=== PATIENT | female | born 1975 | race Caucasian/White ===

== ENCOUNTER → 2022-08-20 10:55 | Outpatient (CLI) | payer OTHER, SELFPAY ==
[2022-08-20 19:56] LABS: Add Manual Diff / Slide Review NO; Basophils Absolute Auto 100 /uL (0-100); Eosinophils Absolute Auto 100 /uL (0-450); Eosinophils Percent Auto 1.6 % (2-4); Hematocrit 38.6 % (36-46); Hemoglobin 12.8 g/dL (12.0-16.0); Lymphocytes Absolute Auto 1600 /uL (1100-4500); Lymphocytes Percent Auto 30.3 % (25-40); Mean Corpuscular HGB Conc 33.1 % (30-36); Mean Corpuscular Hemoglobin 30.2 PG (26-34); Mean Corpuscular Volume 91.1 fL (80-100); Monocytes Absolute Auto 400 /uL (0-900); Monocytes Percent Auto 7.1 % (3-14); Neutrophils Absolute Auto 3200 /uL (1500-7000); Platelet Count 214 X10^3/uL (150-400); Red Blood Cell Count 4.23 X10^6/uL (4.0-5.2); Red Cell Distribution Width 13.2 % (11.6-14.8); White Blood Cell Count 5.4 X10^3/uL (4.5-11.0)
[2022-08-20 20:13] LABS: C-Reactive Protein Quant 0.5 mg/dL (<1.0)
[2022-08-20 20:20] LABS: Rheumatoid Factor < 8.6 IU/mL (<12.0)
[2022-08-20 20:29] LABS: Erythrocyte Sedimentation Rate 7 MM/HR (0-20)
[2022-08-23 18:50] LABS: ANA Screen, IFA Negative (.)
== END ==
PROVIDERS: PCP Physician Assistant Medical; Visit Provider Physician Assistant Medical
DX: M79.7 Fibromyalgia (principal); R20.0 Anesthesia of skin; R20.2 Paresthesia of skin; R40.0 Somnolence; R53.82 Chronic fatigue, unspecified; R53.83 Other fatigue
CPT/HCPCS: 85025; 85651; 86038; 86140; 86430

== ENCOUNTER → 2022-10-23 13:21 | Outpatient (CLI) | payer MEDICARE, SELFPAY ==
--- NOTE | 2022-10-23 | DI.MG.S_ITS ---
UNILATERAL RIGHT DIGITAL DIAGNOSTIC MAMMOGRAM 3D/2D WITH ADDITIONAL VIEWS: 10/23/2022 CLINICAL: Additional evaluation requested from prior study. Comparison is made to exam dated: 08/12/2022 mammogram - outside location. The right breast is heterogeneously dense, which may obscure small masses (category c / 51-75% glandular tissue). There is a 0.3 cm oval low density focal asymmetry with a circumscribed margin in the right breast at 9 o'clock posterior depth. This is seen in additional views. No other significant masses or calcifications are seen in the breast. IMPRESSION: INCOMPLETE: NEEDS ADDITIONAL IMAGING EVALUATION The 0.3 cm oval low density focal asymmetry in the right breast is indeterminate. An ultrasound is recommended. Based on the Tyrer Cuzick model (a risk assessment model) the patient's lifetime risk is 10.1% and her 10 year risk is 2.0%. According to the ACR, ACS, and NCCN guidelines, an annual breast MRI exam along with mammogram is recommended if the patient's lifetime risk is 20% or greater. This exam was interpreted at Station ID: [id number]. NOTE: For mammograms, a report in lay terms will be sent to the patient. Approximately 15% of breast malignancies will not be visualized mammographically. In the management of a palpable breast mass, a negative mammogram must not discourage biopsy of a clinically suspicious lesion. Electronically Signed By: Kiel toney/solis:10/23/2022 16:00:09 ACR BI-RADS Category 0: Incomplete 3340F
--- NOTE | 2022-10-23 13:23 | DI.US.S_ITS ---
LIMITED ULTRASOUND OF RIGHT BREAST AND AXILLA: 10/23/2022 CLINICAL: Patient returns today to evaluate a focal asymmetry in the right breast. Comparison is made to exams dated: 10/23/2022 mammogram - and 08/12/2022 mammogram - outside location. Color flow ultrasound of the right breast axilla was performed. Yepez scale images of the real-time examination were reviewed. There is a 0.3 cm x 0.2 cm x 0.2 cm oval mass with a circumscribed margin in the right breast at 9 o'clock posterior depth 8 cm from the nipple. This oval mass is hypoechoic. This correlates with mammography findings. Color flow imaging demonstrates that there is no vascularity present. No significant abnormalities were seen sonographically in the right axilla. IMPRESSION: PROBABLY BENIGN The 0.3 cm x 0.2 cm x 0.2 cm oval mass in the right breast most likely is a complicated cyst and is probably benign. A follow-up right mammogram and an ultrasound in 6 months is recommended to demonstrate stability. This exam was interpreted at Station ID: [id number]. Electronically Signed By: Kiel toney/solis:10/23/2022 16:03:54 letter sent: Followup Recommended Ultrasound BI-RADS: 3 Probably benign
--- NOTE | 2022-10-23 13:23 | DI.CT.S_ITS ---
PROCEDURE: CT HEAD/BRAIN WO CON INDICATIONS: chronic sinusitis, headaches, fatigue TECHNIQUE: Noncontrast 4.5 mm thick angled axial sections acquired from the foramen magnum to the vertex, with coronal and sagittal reformats. For radiation dose reduction, the following was used: automated exposure control, adjustment of mA and/or kV according to patient size. COMPARISON: None. FINDINGS: Image quality: Excellent. CSF spaces: Basal cisterns are patent. No extra-axial fluid collections. Ventricles are normal in size and shape. Brain: No midline shift. No intracranial masses or hemorrhage. Yepez-white matter interface is normal. Skull and face: Calvarium and visualized facial bones are intact, without suspicious lesions. Sinuses: Visualized sinuses and mastoids are clear. IMPRESSION: Unremarkable noncontrast head CT, without a cause of headaches identified. No active paranasal sinus disease is seen. Dictated by: Ronald Mejia M.D. on 10/23/2022 at 12:40 Approved by: Ronald Mejia M.D. on 10/23/2022 at 12:40
== END ==
LOC: MAMMO 13:22
PROVIDERS: PCP Physician Assistant Medical; Referring Provider Physician Assistant Medical; Visit Provider Physician Assistant Medical
DX: J32.9 Chronic sinusitis, unspecified (principal); R92.8 Other abnormal and inconclusive findings on diagnostic imaging of breast; R51.9 Headache, unspecified; R53.82 Chronic fatigue, unspecified; N63.15 Unspecified lump in the right breast, overlapping quadrants
CPT/HCPCS: 70450; 76642; 77065; G0279

== ENCOUNTER → 2023-01-28 12:59 | Outpatient (CLI) | payer MEDICARE, SELFPAY ==
[2023-01-28 19:14] LABS: Add Manual Diff / Slide Review NO; Basophils Absolute Auto 0 /uL (0-100); Basophils Percent Auto 0.8 % (0-2); Eosinophils Absolute Auto 100 /uL (0-450); Eosinophils Percent Auto 1.9 % (2-4); Hematocrit 37.2 % (36-46); Hemoglobin 12.6 g/dL (12.0-16.0); Lymphocytes Absolute Auto 1900 /uL (1100-4500); Mean Corpuscular Hemoglobin 31.1 PG (26-34); Mean Corpuscular Volume 91.6 fL (80-100); Monocytes Absolute Auto 400 /uL (0-900); Monocytes Percent Auto 7.1 % (3-14); Neutrophils Absolute Auto 3300 /uL (1500-7000); Neutrophils Percent Auto 57.2 % (50-75); Platelet Count 229 X10^3/uL (150-400); Red Blood Cell Count 4.06 X10^6/uL (4.0-5.2); Red Cell Distribution Width 13.1 % (11.6-14.8); White Blood Cell Count 5.9 X10^3/uL (4.5-11.0)
[2023-01-28 19:24] LABS: Alanine Aminotransferase 19 IU/L (<35); Albumin 4.4 g/dL (3.5-5.0); Albumin Globulin Ratio 1.7 (1.0-2.8); Alkaline Phosphatase 77 U/L (38-126); Aspartate Aminotransferase 27 IU/L (14-36); BUN Creatinine Ratio 13.2 (6-22); Bilirubin Total 0.3 mg/dL (0.2-1.3); Blood Urea Nitrogen 12 mg/dL (7-17); Calcium 9.5 mg/dL (8.4-10.2); Carbon Dioxide 29 mmol/L (22-32); Chloride 104 mmol/L (98-107); Estimated Glomerular Filt Rate > 60 mL/min (>60); Globulin 2.6 g/dL (1.7-4.1); Glucose 81 mg/dL (70-100); HEMOLYSIS < 15 (0-50); Lipase 96 U/L (23-300); Potassium 3.9 mmol/L (3.4-5.1); Sodium 138 mmol/L (137-145)
== END ==
PROVIDERS: PCP Physician Assistant Medical; Visit Provider Physician Assistant
DX: R10.9 Unspecified abdominal pain (principal); M54.50 Low back pain, unspecified
CPT/HCPCS: 80053; 83690; 85025

== ENCOUNTER → 2023-04-09 09:55 | Outpatient (CLI) | payer MEDICARE, SELFPAY ==
--- NOTE | 2023-04-09 09:56 | DI.US.S_ITS ---
LIMITED ULTRASOUND OF RIGHT BREAST AND AXILLA: 04/09/2023 CLINICAL: Patient returns today to evaluate a focal asymmetry in the right breast. Comparison is made to exams dated: 10/23/2022 ultrasound, 04/09/2023 mammogram, 10/23/2022 mammogram - [facility], and 08/12/2022 mammogram - outside location. Color flow and real-time ultrasound of the right breast 9 o'clock, and axilla regions were performed. Yepez scale images of the real-time examination were reviewed. There is a stable 0.4 cm oval complicated cyst in the right breast at 9 o'clock posterior depth 8 cm from the nipple. This oval complicated cyst is hypoechoic. This correlates with mammography findings. Color flow imaging demonstrates that there is no vascularity present. No significant abnormalities were seen sonographically in the right axilla. IMPRESSION: PROBABLY BENIGN The stable 0.4 cm oval complicated cyst in the right breast is probably benign. A follow-up mammogram and an ultrasound in 6 months is recommended to demonstrate stability. Patient will be due for left breast mammogram at that time. Exam findings were conveyed to the patient. This exam was interpreted at Station ID: [id number]. Electronically Signed By: Vitor Jurado M.D. slc/:04/09/2023 11:53:41 letter sent: Followup Recommended Ultrasound BI-RADS: 3 Probably benign
--- NOTE | 2023-04-09 10:17 | DI.MG.S_ITS ---
Patient Name: JORGE REINOSO date: 1975 Sex: F Attending Physician: Basia Indications: Date: 04/09/2023 10:31 At the request of: JUSTEN MCCARTHY Procedure: MM diagnostic mammo unilat RT UNILATERAL RIGHT DIGITAL DIAGNOSTIC MAMMOGRAM 3D/2D: 04/09/2023 CLINICAL: Short term follow up of the right breast. Comparison is made to exams dated: 10/23/2022 ultrasound, 10/23/2022 mammogram - [facility], and 08/12/2022 mammogram - outside location. There are scattered areas of fibroglandular density in the right breast (category b / 25%-50% glandular tissue). There is a stable focal asymmetry in the right breast at 9 o'clock posterior depth. No other significant masses or calcifications are seen in the breast. IMPRESSION: INCOMPLETE: NEEDS ADDITIONAL IMAGING EVALUATION The stable focal asymmetry in the right breast is indeterminate. A targeted ultrasound is recommended and will immediately follow. Based on the Tyrer Cuzick model (a risk assessment model) the patient?s lifetime risk is 6.8% and her 10 year risk is 1.4%. According to the ACR, ACS, and NCCN guidelines, an annual breast MRI exam along with mammogram is recommended if the patient?s lifetime risk is 20% or greater. This exam was interpreted at Station ID: [id number]. Continued Report - Page 2 of 2 Patient Name: JORGE REINOSO date: 1975 Sex: F Attending Physician: Basia Indications: Date: 04/09/2023 10:31 At the request of: JUSTEN MCCARTHY Procedure: MM diagnostic mammo unilat RT NOTE: For mammograms, a report in lay terms will be sent to the patient. Approximately 15% of breast malignancies will not be visualized mammographically. In the management of a palpable breast mass, a negative mammogram must not discourage biopsy of a clinically suspicious lesion. Electronically Signed By: Vitor Jurado M.D. slc/:04/09/2023 10:31:46 ACR BI-RADS Category 0: Incomplete 3340F
== END ==
PROVIDERS: PCP Physician Assistant; Referring Provider Physician Assistant; Visit Provider Physician Assistant
DX: N60.01 Solitary cyst of right breast; N64.89 Other specified disorders of breast
CPT/HCPCS: 76642; 77065; G0279

== ENCOUNTER → 2023-05-15 11:47 | Outpatient (CLI) | payer MEDICARE, SELFPAY ==
--- NOTE | 2023-05-15 11:49 | DI.RAD.S_ITS ---
Bone Density Report Name: JORGE REINOSO Age: 48 Sex: Female Ethnicity: White Date of : 1975 Indication: postmenopausal; Referring Provider: JUSTEN MCCARTHY Study: Bone densitometry was performed. Exam Date: May 15, 2023 Accession number: [id number] Bone Density: Region BMD T-score Z-score Classification AP Spine(L1-L4) 0.797 -2.3 -1.6 Osteopenia Femoral Neck (Left) 0.571 -2.5 -1.9 Osteoporosis Total Hip (Left) 0.715 -1.9 -1.5 Osteopenia Femoral Neck (Right) 0.618 -2.1 -1.4 Osteopenia Total Hip (Right) 0.763 -1.5 -1.1 Osteopenia Total Hip Mean 0.739 -1.7 -1.3 Osteopenia World Health Organization criteria for BMD impression classify patients as: Normal (T-score at or above -1.0), Osteopenia (T-score between -1.0 and -2.5), or Osteoporosis (T-score at or below -2.5). 10-year Fracture Risk: FRAX not reported because: Some T-score for Spine Total or Hip Total or Femoral Neck at or below -2.5 Impression: The patient has osteoporosis, based on the Left Femoral Neck T-score. Discussion: INCREASED RISK OF FRACTURE. BONE DENSITY IS UNDESIRABLY LOW AT ONE OR MORE SKELETAL SITES, CONSISTENT WITH POSTMENOPAUSAL OSTEOPOROSIS. This patient's lowest T-score meets the World Health Organization's (WHO) criteria for osteoporosis at one or more sites (T-score -2.5 or below). In untreated patients, the risk of osteoporotic fracture increases approximately two-fold for each 1.0 SD decrease in T-score. Low bone density is not the only risk factor for fracture; also consider factors such as patient's age, frailty or poor health, risk of falling, risk of injury, previous osteoporotic fracture, family history of osteoporosis, cigarette smoking, low body weight, etc. Not everyone with low bone mineral density has osteoporosis; osteomalacia and other metabolic bone disorders should also be considered. Patients who have osteoporosis should be evaluated for specific diseases and conditions (secondary causes) that may cause or contribute to bone loss. The [place] [employer]ocr[employer] (AACE) and National Osteoporosis Foundation (NOF) recommend pharmacologic intervention for all postmenopausal women whose T-score is in this range. The patient should follow a healthful lifestyle (good nutrition with adequate calcium and vitamin D, and appropriate weight-bearing exercise). Follow-Up: Consider a repeat BMD and Vertebral Fracture Assessment (VFA) exam in 2 years or sooner if medically necessary, to reassess this patient's status. Reported by: JOSHUA JAQUEZ M.D. on 05/15/2023 12:18:00 PM.
== END ==
PROVIDERS: PCP Physician Assistant; Referring Provider Physician Assistant; Visit Provider Physician Assistant
DX: M81.0 Age-related osteoporosis without current pathological fracture (principal); Z78.0 Asymptomatic menopausal state
CPT/HCPCS: 77080

== ENCOUNTER → 2024-03-03 09:59 | Outpatient (CLI) | payer MEDICARE, SELFPAY ==
--- NOTE | 2024-03-03 | DI.MG.S_ITS ---
BILATERAL DIGITAL DIAGNOSTIC MAMMOGRAM 3D/2D: 03/03/2024 CLINICAL: Patient returns for a 6 month follow up of the right breast, due for bilateral exam. Comparison is made to exams dated: 04/09/2023 mammogram, 10/23/2022 mammogram - [facility], and 08/12/2022 mammogram - outside location. There are scattered areas of fibroglandular density in both breasts (category b / 25%-50% glandular tissue). There is a stable focal asymmetry in the right breast at 10 o'clock posterior depth. No other significant masses, calcifications, or other findings are seen in either breast. IMPRESSION: INCOMPLETE: NEEDS ADDITIONAL IMAGING EVALUATION The stable focal asymmetry in the right breast is indeterminate. A targeted ultrasound of the right breast is recommended and will be performed immediately following this exam. Based on the Tyrer Cuzick model (a risk assessment model) the patient's lifetime risk is 6.9% and her 10 year risk is 1.5%. According to the ACR, ACS, and NCCN guidelines, an annual breast MRI exam along with mammogram is recommended if the patient's lifetime risk is 20% or greater. This exam was interpreted at Station ID: [id number]. NOTE: For mammograms, a report in lay terms will be sent to the patient. Approximately 15% of breast malignancies will not be visualized mammographically. In the management of a palpable breast mass, a negative mammogram must not discourage biopsy of a clinically suspicious lesion. Electronically Signed By: Seema Gold M.D. lk/:03/03/2024 11:02:15 ACR BI-RADS Category 0: Incomplete 3340F
--- NOTE | 2024-03-03 10:00 | DI.US.S_ITS ---
LIMITED ULTRASOUND OF RIGHT BREAST: 03/03/2024 CLINICAL: 6 month follow-up of mass. Comparison is made to exams dated: 03/03/2024 mammogram, 04/09/2023 ultrasound, 04/09/2023 mammogram, 10/23/2022 ultrasound, and 10/23/2022 mammogram - [facility]. Color flow and real-time ultrasound of the right breast 9 o'clock region were performed on the areas of interest. Yepez scale images of the real-time examination were reviewed. There is a stable 0.4 cm oval complicated cyst in the right breast at 9 o'clock posterior depth 8 cm from the nipple. This oval complicated cyst is hypoechoic. This correlates with mammography findings. Color flow imaging demonstrates that there is no vascularity present. IMPRESSION: PROBABLY BENIGN The stable 0.4 cm oval complicated cyst in the right breast is probably benign. A follow-up ultrasound in 6 months is recommended to demonstrate stability. This exam was interpreted at Station ID: [id number]. Electronically Signed By: Seema rush/:03/03/2024 11:25:27 letter sent: Followup Recommended Ultrasound BI-RADS: 3 Probably benign
== END ==
LOC: MAMMO 10:00
PROVIDERS: PCP Physician Assistant; Referring Provider Physician Assistant; Visit Provider Physician Assistant
DX: R92.8 Other abnormal and inconclusive findings on diagnostic imaging of breast; N60.01 Solitary cyst of right breast; R92.323 Mammographic fibroglandular density, bilateral breasts
CPT/HCPCS: 76642; 77066; G0279

== ENCOUNTER → 2024-03-10 10:45 | Outpatient (CLI) | payer MEDICARE, SELFPAY ==
[2024-03-10 19:08] LABS: Add Manual Diff / Slide Review NO; Basophils Absolute Auto 100 /uL (0-100); Basophils Percent Auto 1.5 % (0-2); Eosinophils Absolute Auto 100 /uL (0-450); Eosinophils Percent Auto 1.4 % (2-4); Hematocrit 37.4 % (36-46); Hemoglobin 12.7 g/dL (12.0-16.0); Lymphocytes Absolute Auto 1300 /uL (1100-4500); Lymphocytes Percent Auto 28.7 % (25-40); Mean Corpuscular HGB Conc 33.9 % (30-36); Mean Corpuscular Hemoglobin 30.8 PG (26-34); Monocytes Absolute Auto 300 /uL (0-900); Monocytes Percent Auto 5.9 % (3-14); Neutrophils Absolute Auto 2900 /uL (1500-7000); Neutrophils Percent Auto 62.5 % (50-75); Platelet Count 272 X10^3/uL (150-400); Red Blood Cell Count 4.12 X10^6/uL (4.0-5.2); Red Cell Distribution Width 13.8 % (11.6-14.8); White Blood Cell Count 4.6 X10^3/uL (4.5-11.0)
[2024-03-10 19:18] LABS: Alanine Aminotransferase 19 IU/L (<35); Albumin 4.7 g/dL (3.5-5.0); Albumin Globulin Ratio 2.1 (1.0-2.8); Alkaline Phosphatase 68 U/L (38-126); Aspartate Aminotransferase 23 IU/L (14-36); BUN Creatinine Ratio 24.2 (6-22); Bilirubin Total 0.4 mg/dL (0.2-1.3); Blood Urea Nitrogen 15 mg/dL (7-17); Calcium 9.6 mg/dL (8.4-10.2); Carbon Dioxide 31 mmol/L (22-32); Chloride 105 mmol/L (98-107); Cholesterol 229 mg/dL (140-199); Estimated Glomerular Filt Rate > 60 mL/min (>60); Globulin 2.2 g/dL (1.7-4.1); Glucose 90 mg/dL (70-100); HDL Cholesterol 99 mg/dL (40-60); HEMOLYSIS < 15 (0-50); LDL Cholesterol Calculated 119 mg/dL (<100); Potassium 4.4 mmol/L (3.4-5.1); Sodium 139 mmol/L (137-145); Total Protein 6.9 g/dL (6.3-8.2); Triglycerides 54 mg/dL (35-150)
[2024-03-10 19:22] LABS: Hemoglobin A1C% w Est Avg Glu 5.1 % (4.0-6.0)
[2024-03-10 19:48] LABS: Ferritin 35 ng/mL (6-137)
== END ==
PROVIDERS: Nurse Practitioner Adult Health; PCP Family Medicine; Visit Provider Family Medicine
DX: R63.0 Anorexia (principal); F10.90 Alcohol use, unspecified, uncomplicated; F25.0 Schizoaffective disorder, bipolar type; R53.82 Chronic fatigue, unspecified; L65.9 Nonscarring hair loss, unspecified
CPT/HCPCS: 80053; 80061; 82728; 83036; 84443; 85025